=== PATIENT | male | born 2000 | race Caucasian/White ===

== ENCOUNTER 2025-02-16 16:18 | Outpatient (REF) | payer OTHER, SELFPAY ==
[2025-02-16 16:33] LABS: MANUAL DIFF FLAG NO
[2025-02-16 16:56] LABS: Basophils Absolute Auto 0.1 X10*3/uL (0.0-0.2); Basophils Percent Auto 0.8 % (0-2); Eosinophils Absolute Auto 0.5 X10*3/uL (0.0-0.4); Hematocrit 40.2 % (42.0-52.0); Hemoglobin 13.9 g/dl (14.0-18.0); Imm Gran Abs Auto 0.04 X10*3/uL (0.00-0.03); Imm Gran Pct Auto 0.4 % (0.0-0.4); Lymphocytes Absolute Auto 2.2 X10*3/uL (1.2-4.9); Mean Corpuscular HGB Conc 34.6 g/dl (31.0-36.0); Mean Corpuscular Hemoglobin 31.3 pg (27.0-33.0); Mean Corpuscular Volume 90.5 fL (80.0-98.0); Mean Platelet Volume 9.6 fL (9.4-12.4); Monocytes Absolute Auto 0.6 X10*3/uL (0.1-1.2); Monocytes Percent Auto 6.9 % (2-11); Neutrophils Absolute Auto 5.6 x10*3/uL (2.0-8.3); Neutrophils Percent Auto 62.9 % (45-73); Platelet Count 339 X10*3/uL (160-400); Red Blood Count 4.44 X10*6/uL (4.60-5.80); Red Cell Distribution Width 12.4 % (11.0-16.0)
--- OUTSIDE RECORDS SUMMARY | 2025-02-16 17:12 | XMS_ITS | Clinical Summary ---
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 Active EPINEPHrine 0.3 MG/0.3ML injection syringeIndicati ons:Food allergy Inject 0.3 mL (0.3 mg total) into the muscle Once PRN for anaphylaxis for up to 1 dose. 1 syringe once prn anaphylaxis, call 911 if used 2 Syringe 1 9 Active lithium 300 MG capsule Take 300mg by mouth in the am and 600mg in the pm. 0 Active benztropine 1 MG tablet Take 0.5mg in the am and 1mg in the pm. 0 Active ARIPiprazole 15 MG tablet Take 15 mg by mouth daily. 0 Active atomoxetine 25 MG capsule TAKE 2 CAPSULE BY MOUTH DAILY IN AM,X90 DAYS 2 Active Active Problems Patient Care Coordination No te Formatting of this note migh t be different from the original. Murray is [facility] Level 2 due to his chronic hearing loss as well as his bipolar disorder. He is cared for by psychiatry, on multiple meds Problem Noted Date Diagnosed Date Bipolar I disorder 03/26/2022 Overview (03/26/2022): Pt treated by Dr. Morris at [facility]. Has been on numerous meds including Effexor, Abilify, Wellbutrin - all of them did not work well. Currently on Lamictal 75 mg daily, doing well. Attention deficit disorder 07/25/2020 Overview (07/25/2020): Dx'd by Dr. Morris. Has been on Concerta - didn't help. Is currently on Strattera 50 mg daily and doing well. Other premature beats 05/28/2016 Overview (03/28/2018): PVCs (427.69) Onset: 05/28/2016 Added by: Jody Birmingham Allergy to other foods 04/09/2012 Overview (09/04/2021): Allergic to milk, bananas, pork, oranges, cantaloupe, chicken Sensorineural hearing loss (SNHL) of both ears 0 04/09/2012 Overview (07/25/2020): Pt has hearing aids [facility] - last audiology exam 07/03 Resolved Problems Problem Noted Date Diagnosed Date Resolved Date Plantar fascial fibromatosis 12/23/2017 09/04/2021 Overview (03/28/2018): Plantar fasciitis (728.71) Onset: 12/23/2017 Added by: Macarena Phan Bipolar disorder, in partial remission, most recent episode mixed 11/15/2017 03/26/2022 Overview (07/25/2020): Pt treated by Dr. Morris at [facility]. Has been on numerous meds including Effexor, Abilify, Wellbutrin - all of them did not work well. Currently on Lamictal 75 mg daily, doing well. Other urticaria 03/04/2017 09/04/2021 Overview (03/28/2018): Urticaria, other (708.8) Onset: 03/04/2017 Added by: Codi Luna Growth hormone deficiency 05/28/2016 Overview (02/10/2019): Pt started on GH in 2017 for low IGF-1 and bone age -4.8 SD. Has had very good response to GH with current optimal growth velocity on 3 mg daily. Immunizations Immunization Administration Dates Next Due DTaP 5 11/12/2007, 4,02/12/2003,12/11,2002 H1N1 09/05/2009,06/30/2009 HPV Vaccine 9 Valent 06/20/2017,05/28/2016 Hep A, ped/adol 03/09/2011,12/06/2009 Hep B, ped/adol 05/12/2003,2002,2002 Hib (PRP-T) 11/05/2003, 3,2002,10/12 IPV 11/01/2006, 3,2002,10/12 Influenza, injectable, quadr ivalent, preservative free 09/05/2022,09/04/2021,07/25/2020,06/03,08/11/2018,06/20/2017,05/28/2016 ,05/26/2015 Influenza, injectable, trivalent 07/07/2014 Influenza, injectable, triva lent, preservative free 08/03/2010,05/19/2009,07/30/2008,07/09,09/04/2006,07/02/2005,06/28/2004 Influenza, intranasal, quadrivalent 07/15/2013 Influenza, intranasal, trivalent 08/11/2012,06/17 MMR 11/12/2007,11/05/2003 Meningococcal B Trumenba 09/05/2022,07/25/2020 Meningococcal Conj (Menactra) MCV4P 08/11/2018,0 05/20/2014 Pneumococcal Conjugate 08/09/2003,2002,2002,10/12 Tdap 05/20/2014 Varicella 12/09/2008,11/12/2007,08/09/2003 Family History Medical History Relation Name Comments Bipolar disorder Father Anxiety disorder Father's Sister Anxiety disorder Maternal Grandmother Anxiety disorder Mother's Sister Cancer Paternal Grandfather bladder ADD / ADHD Sister Relation Name Status Comments Father Father's Sister Maternal Grandmother Mother's Sister Paternal Grandfather Sister Social History Tobacco Use Types Packs/Day Years Used Date Smoking Tobacco: Every Day Smokeless Tobacco: Current Tobacco Cessation:Counseling Given: Yes Comments:Never Smoker Alcohol Use Standard Drinks/Week Comments No 0 (1 standard drink = 0.6 oz pur e alcohol) Hunger/Food Answer Date Recorded In the last 12 months, did y ou or your family ever eat less than you felt you should because there wasn't enough money for food? No 09/05/2022 Stable Housing Answer Date Recorded Are you worried that in the next 2 months you may not have stable housing? No 09/05/2022 Transportation Concerns Answer Date Rec orded In the last 12 months, have you or your family ever had to go without healthcare because you didn't have a way to get there? No 09/05/2022 Hazards in Home Answer Date Recorded Think about the place you li ve. Do you have problems with any of the following? Pests (mice or roaches), mold, no/not working smoke detectors, water leaks, no window guards. No 2021 Financing Utilities Answer Date Recorde d In the last 12 months, has t he electric, gas, oil, or water company threatened to shut off your services in your home? No 09/05/2022 Safety at Home Answer Date Recorded Are you or your family worried about feeling saf e in your home? No 09/05/2022 Outside Support Answer Date Recorded Do you feel that you need mo re support from other people or programs to help you care for yourself or your family? No 09/05/2022 Understanding Health Concerns Answer Da te Recorded Do you need help understandi ng your or your child's healthcare needs (diagnosis, medications, plan, etc.)? No 09/05/2022 Financing Health Concerns Answer Date R ecorded In the last 12 months, was t here a time when your child needed to see a doctor or get medications or supplies but could not because of cost? No 09/05/2022 Missing School or Work Answer Date Itz rded Did you or your child miss s chool or work because of a health problem that could have been avoided? No 09/05/2022 Sex and Gender Information Value Date Recorded Sex Assigned at Not on file Legal Sex Male 6:32 PM EDT Gender Identity Male 09/04/2021 6:21 AM EST Sexual Orientation Not on file Last Filed Vital Signs Vital Sign Reading Time Taken Comments Blood Pressure 106/64 09/05/2022 3:08 PM EST Pulse 81 09/05/2022 3:08 PM EST Temperature 36.3 ??C (97.4 ??F) 09/05/2022 3:08 PM ES T Respiratory Rate 20 09/05/2022 3:08 PM EST Oxygen Saturation 98% 09/05/2022 3:08 PM EST Inhaled Oxygen Concentration - - Weight 70.3 kg (155 lb) 09/05/2022 3:08 PM EST Height 180 cm (5' 10.87 ) 09/05/2022 3:08 PM EST Body Mass Index 21.7 09/05/2022 3:08 PM EST Plan of Treatment Health Maintenance Due Date Last Done Comments Glucose/HbA1C 09/04/2021 03/28/2018, 07/22/2012 LDL-C/Cholesterol 09/04/2021 Influenza Vaccines (#1) 2024 09/05/20, 07/06/2022, 09/04/2021, Additional history exists COVID-19 Vaccine (2023-2 5 season) 2024 09/05/2021, 02/15/2021, 01/25/2021 DTaP,Tdap,and Td Vaccines (7 - Td or Tdap) 05/20/2024 05/20/2014, 11/12/2007, 02/04/2004, Additional history exists Hepatitis B Vaccines Completed 05/12/2003, 2002, 2002 Pneumococcal Vaccine Completed 08/09/2003, 02/12/2003, 2002, Additional history exists HIB Vaccines Completed 11/05/2003, 01/16, 2002, Additional history exists IPV Vaccines Completed 11/01/2006, 04/17, 2002, Additional history exists MMR Vaccines Completed 11/12/2007, 11/05/2003 Varicella Vaccines Completed 12/09/2008, 0 11/12/2007, 08/09/2003 Hepatitis A Vaccines Completed 03/09/2011, 12/07/19 10 HPV Vaccines Completed 06/20/2017, 05/28/2016 Meningococcal Vaccine Completed 08/11/2018, 014 Men B Vaccine Completed 09/05/2022, 07/25/2020 Procedures * Due to [place] [employer] law, this organization might not be sharing sensitive test results. Procedure Name Priority Date/Time Associated Diagnosis Comments COMPREHENSIVE METABOLIC PANEL Routine 03/28/2018 11:33 AM EDT Fatigue, unspecified type from Last 3 Months or Most Recently Relevant to Health Maintenance Results * Due to [place] [employer] law, this organization might not be sharing sensitive test results. * (ABNORMAL) Comprehensive Metabolic Panel (03/28/2018 11:33 AM EDT) Glucose 96 (70-99) MG/DL [facility] Urea Nitrogen 6 (5-18) MG/DL [facility] Creatinine 0.6(L) (0.7-1.2) MG/DL [facility] Sodium 140 (133-145) MMOL/L [facility] Potassium 4.8 (3.6-5.2) MMOL/L [facility] Chloride 103 (98-107) MMOL/L [facility] HCO3, Arterial 26 (22-29) MMOL/L [facility] Anion Gap 11 (4-17) [facility] Albumin 4.5 (3.2-4.5) GM/DL [facility] Calcium 9.7 (8.6-10.5 ) MG/DL [facility] Comment: NOTE: ADULT REFERENCE RANGE MAY NOT APPLY TO PEDIATRIC PATIENTS. INTERPRET RESULTS WITH CAUTION. Bilirubin, Total 0.4 (0-1.2) MG/DL [facility] Total Protein 6.5 (6.2-8.2) GM/DL [facility] A/G Ratio 2.3 [facility] AST (SGOT) 19 (0-38) U/L [facility] Alkaline Phosphatase 249 (0-390) U/L [facility] ALT (SGPT) 13 (0-41) U/L [facility] eGFR Non- Not reported if <18 yrs ML/MIN/1. 73 M2 [facility] eGFR Not reported if <18 yrs ML/MIN/1. 73 M2 [facility] Comment: Testing performed or reported by [facility], a Service of [facility], [address] [place] [id number] Matias Short MD, PhD, [employer] Blood 03/28/2018 11:3 3 AM EDT 03/28/2018 11:40 AM EDT us Yael Ulloa MD LAB BLOOD ORDERABLES Final Resu lt [facility] from Last 3 Months or Most Recently Relevant to Health Maintenance Insurance [employer] EPO OPEN ACCESS
[2025-02-16 17:50] LABS: Free T4 (Free Thyroxine) 0.83 ng/dL (0.71-1.85); Thyroid Stimulating Hormone 0.76 uIU/mL (0.32-4.0); Vitamin D 25-OH Total 38.2 ng/mL (>30)
[2025-02-16 18:00] LABS: Folate 12.6 ng/mL (> or = 4.0); Vitamin B12 718 pg/mL (200-900)
[2025-02-17 03:44] LABS: Sex Hormone Binding Globulin 30 nmol/L (10-50)
[2025-02-20 14:44] LABS: Testosterone, Total 566 ng/dL (250-1100)
== END 2025-02-16 16:19 | disposition home or self-care (01) ==
LOC: HO.LAB 16:18
PROVIDERS: PCP Internal Medicine; Visit Provider Psychiatry & Neurology Psychiatry
DX: Z13.29 Encounter for screening for other suspected endocrine disorder (principal); Z13.21 Encounter for screening for nutritional disorder
CPT/HCPCS: 36415; 82306; 82607; 82746; 84270; 84403; 84439; 84443; 85025